=== PATIENT | female | born 1965 | race Caucasian/White ===

== ENCOUNTER 2016-11-28 08:00 | Outpatient (CLI) | payer MEDICAID, OTHER ==
[2016-11-28 18:30] LABS: BILIRUBIN,TOTAL 0.3 mg/dL (0.2-1.0); BUN - BLOOD UREA NITROGEN 14 mg/dL (6-20); CALCIUM 9.7 mg/dL (8.5-10.3); CARBON DIOXIDE - CO2 28 mmol/L (21-32); CHLORIDE 102 mmol/L (101-111); CREATININE 0.8 mg/dL (0.4-1.0); GFR - MDRD 75 (>89); GLUCOSE 98 mg/dL (70-100); POTASSIUM 3.9 mmol/L (3.5-5.0); SODIUM 139 mmol/L (135-145); TOTAL PROTEIN 7.4 g/dL (6.7-8.2)
[2016-11-28 18:32] LABS: BILIRUBIN,DIRECT < 0.1 mg/dL (0.1-0.5)
== END 2016-11-28 23:59 ==
LOC: LAB.S 08:00
PROVIDERS: ATTEND Nurse Practitioner Gerontology
DX: B18.2 Chronic viral hepatitis C (principal)
CPT/HCPCS: 36415; 80048; 80076; 87522

== ENCOUNTER 2016-12-19 08:58 | Outpatient (CLI) | payer MEDICAID ==
[2016-12-19 19:15] LABS: BILIRUBIN,DIRECT 0.1 mg/dL (0.1-0.5); BILIRUBIN,TOTAL 0.5 mg/dL (0.2-1.0); CALCIUM 9.4 mg/dL (8.5-10.3); CREATININE 0.8 mg/dL (0.4-1.0); TOTAL PROTEIN 7.2 g/dL (6.7-8.2)
== END 2016-12-19 08:59 | disposition home or self-care (01) ==
LOC: LAB.S 08:58
PROVIDERS: ATTEND Nurse Practitioner Gerontology
DX: B18.2 Chronic viral hepatitis C (principal)
CPT/HCPCS: 36415; 80048; 80076; 87522

== ENCOUNTER 2017-01-02 09:14 | Emergency (ER) | payer MEDICAID ==
[2017-01-02] MEDS ORDERED: SULFAMETH/TRIMETH DS 800/160 MG TABLET PO STA (10:49)
[2017-01-02] MEDS ORDERED: SULFAMETH/TRIMETH DS 800/160 MG TABLET PO ONE (10:52)
--- NOTE | 2017-01-02 10:56 | ED Physician Documentation ---
History of Present Illness - Stated complaint Stated Complaint: RT HAND BUMP - Chief complaint Chief Complaint: Ext Problem - History obtained from History obtained from: Patient - Additonal information Additional information: Pleasant female with history of Crohn's disease and hepatitis C Currently under treatment who presents with a complaint of a painful red bump on the right aspect of her hand just distal to the ulnar head. This area is red, raised, and her hand feels warm. Yesterday she felt a little under the weather. She denies any fever or chills. She does not have any complaints of nausea vomiting constipation or diarrhea. She does not believe she is ever had staph before. Review of systems: For pertinent positive and negative questions for the review of systems please see history of present illness. Otherwise all other systems have been reviewed and are negative. Dragon disclaimer: Parts of this medical record were created using voice recognition technology. Because of the inherent limitations of this system occasional same sounding word substitutions do occur and persist despite proofreading. Please read the document for context. 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 - Present Medications Home Medications: Ambulatory Orders Medication Instructions Recorded Confirmed HYDROcod/ACETAM 5/325 [Vicodin 1 tab 09/24/15 5/325] HYDROcod/ACETAM 5/325 [Laura 5/325] 1 - 2 ea PO Q6H PRN #14 tablet 01/02/17 Sulfamethox/Trimeth 800/160 2 each PO BID #20 tablet 01/02/17 [Bactrim Ds 800/160] - Allergies Allergies/Adverse Reactions: Allergies Allergy/AdvReac Type Severity Reaction Status Date / Time codeine AdvReac Nausea Verified 09/24/15 12:32 - Social History Does the pt smoke?: No Smoking Status: Former smoker Does the pt drink ETOH?: Yes Does the pt have substance abuse?: No - Immunizations Immunizations are current?: Yes Immunizations: TDAP >10years/unknown - POLST Patient has POLST: No PD ED PE NORMAL - Vitals Vital signs reviewed: Yes - General General: Alert and oriented X 3, No acute distress, Well developed/nourished - HEENT HEENT: Atraumatic - Cardiac Cardiac: RRR, No murmur - Respiratory Respiratory: No respiratory distress, Clear bilaterally - Abdomen Abdomen: Normal bowel sounds - Free text exam Free text exam: On examination of her Right hand there is some mild soft tissue swelling on the dorsum. Most of soft tissue swelling is over the wrist joint where she has a prabhjot-sized abscess that is raised with a central Black punctum Results - Vitals Vitals: Vital Signs - 24 hr 01/02/17 09:20 Temperature 36.6 C Heart Rate 79 Respiratory 16 Rate Blood Pressure 123/77 O2 Saturation 99 Oxygen O2 Source Room air PD MEDICAL DECISION MAKING - ED course ED course: Patient presents with painful red swelling on the dorsum of her right hand. It clearly appears to be an abscess. The patient had the area cleansed, anesthetized with 2 cc of lidocaine by me. It was incised using a #11 scalpel. Once incised pus was obtained. Wound was cultured. It was deloculated using curved hemostats. The abscess cavity was actually quite large and deeper than when he had initially thought. It was packed using approximately 6 inches of quarter inch gauze. Patient tolerated procedure well. She will be placed on double strength Bactrim. This clearly appears to be staphylococcal clinically. I am recommending packing removal in 3 days and recheck with her physician in that period of time. Disposition: To home Clinical impression: 1. Abscess right wrist status post incision and drainage with packing Departure - Departure Disposition: 01 Home, Self Care Clinical Impression: Abscess of hand Condition: Good Instructions: ED Abscess IandD, ED Skin Infec MRSA Suspect Conf, ED Packing Removal Replacement Follow-Up: Richard Salas MD [Primary Care Provider] - Prescriptions: Sulfamethox/Trimeth 800/160 [Bactrim Ds 800/160] 2 each PO BID #20 tablet HYDROcod/ACETAM 5/325 [Laura 5/325] 1 - 2 ea PO Q6H PRN #14 tablet PRN Reason: Pain
[2017-01-02 11:12] VITALS: BP 124/60
== END 2017-01-02 11:12 | disposition home or self-care (01) ==
LOC: ED 09:14
DX: L02.413 Cutaneous abscess of right upper limb (principal); B19.20 Unspecified viral hepatitis C without hepatic coma; Z87.891 Personal history of nicotine dependence
CPT/HCPCS: 10061; 87070; 87077; 87181; 87205; 99283; A9270

== ENCOUNTER 2017-01-23 08:33 | Outpatient (CLI) | payer MEDICAID ==
[2017-01-23 19:30] LABS: BILIRUBIN,TOTAL 0.6 mg/dL (0.2-1.0); BUN - BLOOD UREA NITROGEN 8 mg/dL (6-20); CALCIUM 9.9 mg/dL (8.5-10.3); CARBON DIOXIDE - CO2 27 mmol/L (21-32); CHLORIDE 104 mmol/L (101-111); CREATININE 0.8 mg/dL (0.4-1.0); GFR - MDRD 75 (>89); GLUCOSE 98 mg/dL (70-100); POTASSIUM 3.7 mmol/L (3.5-5.0); SODIUM 139 mmol/L (135-145); TOTAL PROTEIN 7.5 g/dL (6.7-8.2)
[2017-01-23 19:38] LABS: BILIRUBIN,DIRECT < 0.1 mg/dL (0.1-0.5)
== END 2017-01-23 08:34 | disposition home or self-care (01) ==
LOC: LAB.S 08:33
PROVIDERS: ATTEND Nurse Practitioner Gerontology
DX: B18.2 Chronic viral hepatitis C (principal)
CPT/HCPCS: 36415; 80048; 80076; 87522

== ENCOUNTER 2017-03-14 08:14 | Outpatient (CLI) | payer MEDICAID ==
[2017-03-14 12:15] LABS: BASOPHILS % (AUTO) 0.4 %; EOSINOPHILS # (AUTO) 0.1 10^3/uL (0.0-0.7); EOSINOPHILS % (AUTO) 1.5 %; HGB - HEMOGLOBIN 12.8 g/dL (12.0-16.0); LYMPHOCYTES # (AUTO) 2.8 10^3/uL (1.5-3.5); LYMPHOCYTES % (AUTO) 46.9 %; MEAN CORPUSCULAR HEMOGLOBIN 27.7 pg (27.0-31.0); MEAN CORPUSCULAR HGB CONC 32.7 g/dL (32.0-36.0); MEAN CORPUSCULAR VOLUME 84.7 fL (81.0-99.0); MEAN PLATELET VOLUME 9.5 fL (7.9-10.8); MONOCYTES # (AUTO) 0.4 10^3/uL (0.0-1.0); MONOCYTES % (AUTO) 6.9 %; NEUTROPHILS # (AUTO) 2.7 10^3/uL (1.5-6.6); NEUTROPHILS % (AUTO) 44.3 %; NUCLEATED RED BLOOD CELLS AUTO 0.1 /100WBC; RED BLOOD COUNT 4.61 10^6/uL (4.20-5.40); RED CELL DISTRIBUTION WIDTH 13.2 % (12.0-15.0); UNCORRECTED WHITE BLOOD COUNT 6.1 x10^3/uL; WHITE BLOOD COUNT 6.1 x10^3/uL (4.8-10.8)
[2017-03-14 12:22] LABS: ALBUMIN/GLOBULIN RATIO 1.3 (1.0-2.2); BILIRUBIN,TOTAL 0.8 mg/dL (0.2-1.0); BUN - BLOOD UREA NITROGEN 14 mg/dL (6-20); CALCIUM 9.1 mg/dL (8.5-10.3); CARBON DIOXIDE - CO2 27 mmol/L (21-32); CHLORIDE 104 mmol/L (101-111); CHOL/HDL RATIO 3.1 (<4.4); CHOLESTEROL 202 mg/dL; CREATININE 0.8 mg/dL (0.4-1.0); GFR - MDRD 75 (>89); GLUCOSE 97 mg/dL (70-100); HDL CHOLESTEROL 66 mg/dL; LDL/HDL RATIO 1.9 (<4.4); SODIUM 138 mmol/L (135-145); TOTAL PROTEIN 7.1 g/dL (6.7-8.2); TRIGLYCERIDES 60 mg/dL; VLDL CHOLESTEROL 12 mg/dL
[2017-03-16 21:52] LABS: TEST RESULT REPORT (())
== END 2017-03-14 08:15 | disposition home or self-care (01) ==
LOC: LAB.F 08:14
PROVIDERS: ATTEND Nurse Practitioner Family
DX: K50.90 Crohn's disease, unspecified, without complications (principal); Z13.220 Encounter for screening for lipoid disorders; E03.9 Hypothyroidism, unspecified; B19.20 Unspecified viral hepatitis C without hepatic coma
CPT/HCPCS: 36415; 80053; 80061; 81599; 84443; 85025; 87522

== ENCOUNTER 2017-04-25 17:23 | Emergency (ER) | payer MEDICAID ==
[2017-04-25 17:31] VITALS: BP 149/87
[2017-04-25] MEDS ORDERED: KETOROLAC 60 MG/2 ML VIAL IM STA (18:08)
--- NOTE | 2017-04-25 18:09 | ED Physician Documentation ---
PD HPI UPPER EXT INJURY - Stated complaint Stated Complaint: LEFT ARM PX - Chief complaint Chief Complaint: Ext Problem - History obtained from History obtained from: Patient - History of Present Illness Location: Left, Forearm, Wrist Where injury occurred: Work Timing - onset: Today Timing - duration: Days (1) Timing - details: Gradual onset Pain level max: 7 Pain level now: 7 Improved by: Rest, Ice, Immobilization Worsened by: Moving, Palpating Associated symptoms: No: Weakness, Numbness, Tingling, Swelling Similar symptoms before: Diagnosis (has a chronic poorly healed L forearm fracture. 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 - Present Medications Home Medications: Ambulatory Orders Medication Instructions Recorded Confirmed Cyclobenzaprine [Flexeril] 10 mg PO TID PRN #20 tablet 04/25/17 Hydrocodone/Acetaminophen 1 - 2 each PO Q6H PRN #3 tablet 04/25/17 [Hydrocodon-Acetaminophen 5-325] Meloxicam [Mobic] 15 mg PO DAILY PRN #20 tablet 04/25/17 - Allergies Allergies/Adverse Reactions: Allergies Allergy/AdvReac Type Severity Reaction Status Date / Time codeine AdvReac Nausea Verified 04/25/17 17:31 - Social History Does the pt smoke?: No Smoking Status: Never smoker Does the pt drink ETOH?: Yes Does the pt have substance abuse?: No - Immunizations Immunizations are current?: Yes Immunizations: TDAP >10years/unknown - POLST Patient has POLST: No PD ED PE NORMAL - Vitals Vital signs reviewed: Yes - General General: Alert and oriented X 3, No acute distress - Derm Derm: Warm and dry - Extremities Extremities: Other (Deformity present on the proximal aspect of the ulna, chronic. No overlying skin changes. Patient has pain with active range of motion of the forearm and wrist. No bony tenderness to palpation. Neurovascularly intact) - Neuro Neuro: Alert and oriented X 3 - Psych Psych: Normal mood, Normal affect Results - Vitals Vitals: Vital Signs - 24 hr 04/25/17 17:26 Temperature 36.5 C Heart Rate 83 Respiratory 14 Rate Blood Pressure 149/87 H O2 Saturation 98 Oxygen O2 Source Room air PD MEDICAL DECISION MAKING - ED course Complexity details: considered differential, d/w patient ED course: Patient is a 51-year-old female who presents to the emergency department with what appears to be muscular strain. No evidence of acute fracture. She states that she has not reinjured the arm other than lifting, states that the arm normally hurts after lifting. States she is out of all of her pain medication. Informed her that she needs to follow-up with her doctor for further pain medications after today. We will give her a small amount of pain medication, but will treat with muscle relaxants and NSAIDs primarily. Placed in a Velcro wrist splint for comfort. Patient counseled regarding signs and symptoms for which I believe and urgent re-evaluation would be necessary. Patient with good understanding of and agreement to plan and is comfortable going home at this time This document was made in part using voice recognition software. While efforts are made to proofread this document, sound alike and grammatical errors may occur. Departure - Departure Disposition: 01 Home, Self Care Clinical Impression: Wrist strain Qualifiers: Encounter type: initial encounter Laterality: left Qualified Code(s): S66.912A - Strain of unspecified muscle, fascia and tendon at wrist and hand level, left hand, initial encounter Strain of forearm, left Qualifiers: Encounter type: initial encounter Qualified Code(s): S56.912A - Strain of unspecified muscles, fascia and tendons at forearm level, left arm, initial encounter Condition: Good Instructions: ED Strain Muscle Ext Follow-Up: Kimmy Mcintosh ARNP [Primary Care Provider] - Within 1 week Prescriptions: Cyclobenzaprine [Flexeril] 10 mg PO TID PRN #20 tablet PRN Reason: Spasms Hydrocodone/Acetaminophen [Hydrocodon-Acetaminophen 5-325] 1 - 2 each PO Q6H PRN #3 tablet PRN Reason: pain Meloxicam [Mobic] 15 mg PO DAILY PRN #20 tablet PRN Reason: pain Comments: Return if you worsen. Use the splint as needed for comfort. you can also use the sling as needed for comfort. Follow-up with your doctor for further evaluation and care. Do not drink alcohol or drive while on narcotic pain medicine. Note that many narcotic pain relievers also contain tylenol/acetaminophen. Please ensure that your total dose of acetaminophen from all sources does not exceed 3 grams (3000mg) per day. You may constipated on this medication, take a stool softener such as "Colace" twice a day while you are on it. Also recommend a kezt-ode-vtsweyl laxative such as senna or MiraLAX any day that you do not have a bowel movement. If you received narcotic pain medication in the emergency department, do not drive or operate machinery for the next 24 hours. Discharge Date/Time: 04/25/17 18:42
[2017-04-25] MEDS ORDERED: KETOROLAC 30 MG/ML VIAL ONE ×2 (18:18→18:24)
== END 2017-04-25 18:42 | disposition home or self-care (01) ==
LOC: ED 17:23
DX: S56.912A Strain of unspecified muscles, fascia and tendons at forearm level, left arm, initial encounter (principal); X58.XXXA Exposure to other specified factors, initial encounter
CPT/HCPCS: 96372; 99283

== ENCOUNTER 2017-05-29 12:00 | Outpatient (CLI) | payer MEDICAID | END 2017-05-29 12:01 | disposition home or self-care (01) | LOC: LAB.F 12:00 | DX: Z02.1 Encounter for pre-employment examination (principal) ==

== ENCOUNTER 2017-07-17 16:38 | Outpatient (CLI) | payer MEDICAID ==
[2017-07-17 18:17] LABS: ALBUMIN 4.3 g/dL (3.2-5.5); BILIRUBIN,DIRECT 0.1 mg/dL (0.1-0.5); BILIRUBIN,TOTAL 0.6 mg/dL (0.2-1.0); CALCIUM 9.6 mg/dL (8.5-10.3); CREATININE 0.9 mg/dL (0.4-1.0); TOTAL PROTEIN 7.4 g/dL (6.7-8.2)
[2017-07-21 23:27] LABS: HCV RNA QNT <1.18 NOT DETECTED Log IU/mL (<1.18); HCV RNA QUANT RT PCR <15 NOT DETECTED IU/mL (<15)
== END 2017-07-17 16:39 | disposition home or self-care (01) ==
LOC: LAB.S 16:38
PROVIDERS: ATTEND Nurse Practitioner Gerontology
DX: B18.2 Chronic viral hepatitis C (principal)
CPT/HCPCS: 36415; 80048; 80076; 87522

== ENCOUNTER 2017-12-31 14:43 | Outpatient (CLI) | payer MEDICAID | END 2017-12-31 14:44 | disposition critical access hospital (66) | LOC: EMS 14:43 | PROVIDERS: ATTEND Surgery | DX: R10.9 Unspecified abdominal pain (principal); M54.5 Low back pain; R11.2 Nausea with vomiting, unspecified | CPT/HCPCS: A0425; A0427; A0999 ==

== ENCOUNTER 2017-12-31 15:28 | Emergency (ER) | payer MEDICAID ==
--- NOTE | 2017-12-31 16:08 | ED Physician Documentation ---
PD HPI ABD PAIN - Stated complaint Stated Complaint: ABD PAIN - History obtained from History obtained from: Patient - History of Present Illness Timing - onset: Today, Yesterday Timing - duration: Days (1-2) Timing - details: Gradual onset, Still present Quality: Cramping, Aching, Pain Location: All over / everywhere, Periumbilical Radiation: No: Chest, Left flank, Right flank Improved by: No: Vomiting Worsened by: Eating Associated symptoms: Nausea, Vomiting, Diarrhea (chronic due to crohns). No: Fever Similar symptoms before: Diagnosis (states history of crohns and has similar symptoms with flare ups.) Recently seen: Not recently seen Review of Systems Constitutional: reports: Myalgias. denies: Fever, Chills Nose: denies: Rhinorrhea / runny nose, Congestion Throat: denies: Sore throat Cardiac: denies: Chest pain / pressure, Palpitations Respiratory: denies: Dyspnea, Cough GI: reports: Abdominal Pain, Nausea, Vomiting, Diarrhea. denies: Constipation, Hematemesis, Bloody / black stool : denies: Dysuria, Frequency Skin: denies: Rash, Lesions Neurologic: reports: Generalized weakness. 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 - Present Medications Home Medications: Ambulatory Orders Medication Instructions Recorded Confirmed Dexamethasone [Decadron] 4 mg PO DAILY #8 tablet 12/31/17 Dicyclomine [Bentyl] 10 mg PO QID PRN #20 capsule 12/31/17 HYDROcod/ACETAM 5/325 [[place] 5/325] 1 tab PO Q6H PRN #15 tablet 12/31/17 Ondansetron Odt [Zofran] 4 mg TL Q6H PRN #15 tablet 12/31/17 - Allergies Allergies/Adverse Reactions: Allergies Allergy/AdvReac Type Severity Reaction Status Date / Time codeine AdvReac Nausea Verified 12/31/17 16:51 - Social History Does the pt smoke?: No Smoking Status: Never smoker Does the pt drink ETOH?: Yes Does the pt have substance abuse?: No - Immunizations Immunizations are current?: Yes Immunizations: TDAP >10years/unknown - POLST Patient has POLST: No PD ED PE NORMAL - Vitals Vital signs reviewed: Yes - General General: Alert and oriented X 3, Well developed/nourished, Other (appears in pain due to general abd pain, gestures to mid abd when asked where it hurts. ) - HEENT HEENT: PERRL, Pharynx benign - Neck Neck: Supple, no meningeal sign, No adenopathy - Cardiac Cardiac: RRR, No murmur - Respiratory Respiratory: Clear bilaterally - Abdomen Abdomen: Soft, Non distended, No organomegaly, Other (tender generally but mostly mid abd. ). No: Normal bowel sounds (hyperactive) Results - Vitals Vitals: Oxygen O2 Source Room air - Labs Labs: Laboratory Tests 12/31/17 12/31/17 12/31/17 16:16 16:16 16:16 WBC 12.1 H RBC 4.93 Hgb 13.5 Hct 41.8 MCV 84.8 MCH 27.4 MCHC 32.2 RDW 13.6 Plt Count 191 MPV 9.2 Neut # (Auto) 10.7 H Lymph # (Auto) 0.9 L [place] # (Auto) 0.4 Eos # (Auto) 0.0 Baso # (Auto) 0.0 Absolute Nucleated RBC 0.00 Nucleated RBC % 0.0 ESR 4 Sodium 140 Potassium 4.0 Chloride 105 Carbon Dioxide 26 Anion Gap 9.0 BUN 14 Creatinine 0.8 Estimated GFR (MDRD) 75 L Glucose 135 H Calcium 9.8 Total Bilirubin 1.1 H AST 39 ALT 29 Alkaline Phosphatase 54 Total Protein 8.6 H Albumin 4.9 Globulin 3.7 Albumin/Globulin Ratio 1.3 Lipase 27 PD MEDICAL DECISION MAKING - ED course Complexity details: reviewed results (WBC slightly up. ESR is normal. ), re- evaluated patient (feels better with fluids and meds. ), considered differential , d/w patient - Sepsis Event Vital Signs: Oxygen O2 Source Room air Departure - Departure Disposition: 01 Home, Self Care Clinical Impression: Abdominal pain Acute Crohn's disease Qualifiers: Digestive disease complication type: without complication Qualified Code(s): K50.90 - Crohn's disease, unspecified, without complications Condition: Stable Record reviewed to determine appropriate education?: Yes Instructions: ED Abdominal Pain Unkn Cause, ED Inflam Bowel Disease Crohn Follow-Up: Kimmy Mcintosh ARNP [Primary Care Provider] - Prescriptions: Dexamethasone [Decadron] 4 mg PO DAILY #8 tablet Dicyclomine [Bentyl] 10 mg PO QID PRN #20 capsule PRN Reason: Spasms HYDROcod/ACETAM 5/325 [[place] 5/325] 1 tab PO Q6H PRN #15 tablet PRN Reason: Pain Ondansetron Odt [Zofran] 4 mg TL Q6H PRN #15 tablet PRN Reason: Nausea / Vomiting Comments: Drink lots of fluids. Food as tolerated. Decadron daily for the next week the inflammation of the Crohn's flareup. Your white count and sed rate are good so presumably not significant flareup and I would anticipate improvement in the short-term. Use dicyclomine if needed for cramps and pain. Hydrocodone if needed for worse pain. Ondansetron if needed for nausea. Follow-up with your primary care in the next several days if not improving well. Discharge Date/Time: 12/31/17 18:15
[2017-12-31 16:22] LABS: BASOPHILS % (AUTO) 0.3 %; HGB - HEMOGLOBIN 13.5 g/dL (12.0-16.0); LYMPHOCYTES # (AUTO) 0.9 10^3/uL (1.5-3.5); LYMPHOCYTES % (AUTO) 7.8 %; MEAN CORPUSCULAR HEMOGLOBIN 27.4 pg (27.0-31.0); MEAN CORPUSCULAR HGB CONC 32.2 g/dL (32.0-36.0); MEAN CORPUSCULAR VOLUME 84.8 fL (81.0-99.0); MEAN PLATELET VOLUME 9.2 fL (7.9-10.8); MONOCYTES # (AUTO) 0.4 10^3/uL (0.0-1.0); MONOCYTES % (AUTO) 3.4 %; NEUTROPHILS # (AUTO) 10.7 10^3/uL (1.5-6.6); NEUTROPHILS % (AUTO) 88.5 %; PLT - PLATELET COUNT 191 10^3/uL (130-450); RED BLOOD COUNT 4.93 10^6/uL (4.20-5.40); RED CELL DISTRIBUTION WIDTH 13.6 % (12.0-15.0); WHITE BLOOD COUNT 12.1 x10^3/uL (4.8-10.8)
[2017-12-31 16:33] LABS: ALBUMIN 4.9 g/dL (3.2-5.5); ALBUMIN/GLOBULIN RATIO 1.3 (1.0-2.2); BILIRUBIN,TOTAL 1.1 mg/dL (0.2-1.0); CALCIUM 9.8 mg/dL (8.5-10.3); CREATININE 0.8 mg/dL (0.4-1.0); TOTAL PROTEIN 8.6 g/dL (6.7-8.2)
[2017-12-31] MEDS ORDERED: HYDROmorphone 1 MG/ML CARPUJECT IVP STA (16:36)
[2017-12-31] MEDS ORDERED: KETOROLAC 15 MG/ML VIAL IVP STA (16:36)
[2017-12-31] MEDS ORDERED: DEXAMETHASONE 10 MG/ML VIAL IVP STA (16:36)
[2017-12-31] MEDS ORDERED: ONDANSETRON 4 MG/2 ML VIAL IVP STA (16:36)
[2017-12-31] MEDS ORDERED: SODIUM CHLORIDE 0.9% 1,000 ML IV ONE (16:36)
[2017-12-31 18:15] VITALS: BP 118/72
== END 2017-12-31 18:15 | disposition home or self-care (01) ==
LOC: EDUNIT# → SUPCPDRO 15:28 → ED 15:28
DX: R10.9 Unspecified abdominal pain (principal); K50.90 Crohn's disease, unspecified, without complications
CPT/HCPCS: 36415; 80053; 83690; 85025; 85651; 96361; 96374; 96375; 99283; J1170

== ENCOUNTER 2018-06-24 12:16 | Emergency (ER) | payer MEDICAID ==
[2018-06-24 12:28] VITALS: BP 141/90
[2018-06-24] MEDS ORDERED: IBUPROFEN 800 MG TABLET PO STA (12:33)
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
--- NOTE | 2018-06-24 13:17 | XRAY Report ---
Reason: middle finger inj Procedure Date: 06/24/2018 Accession Number: [id number] / [id number] Procedure: XR - Finger(s) RT CPT Code: FULL RESULT: EXAM: RIGHT LONG DIGIT RADIOGRAPHY EXAM DATE: 06/24/2018 12:56 PM. CLINICAL HISTORY: Middle finger inj. COMPARISON: None. TECHNIQUE: 3 views. FINDINGS: Bones: Normal. No fracture or bone lesion. Joints: Normal. No subluxations. Soft Tissues: No radiopaque foreign bodies. Soft tissue swelling is likely present. IMPRESSION: 1. Soft tissue swelling is likely present. 2. The bones appear intact. RADIA
== END 2018-06-24 13:13 | disposition home or self-care (01) ==
LOC: ED 12:16
DX: S63.612A Unspecified sprain of right middle finger, initial encounter (principal); X50.1XXA Overexertion from prolonged static or awkward postures, initial encounter; R03.0 Elevated blood-pressure reading, without diagnosis of hypertension
CPT/HCPCS: 29130; 73140; 99282; 99283; A9270

== ENCOUNTER 2018-07-17 09:11 | Day surgery (SDC) | payer MEDICAID ==
[~2018-07-17 09:11] MED LIST: ceFAZolin 2 GM/50 ML 2 GM/50 ML BAG IV ONE
[2018-07-17] MEDS ORDERED: LACTATED RINGERS 1,000 ML IV ONE ×2 (09:16→11:56)
--- NOTE | 2018-07-17 09:20 | ANESTHESIA ---
Pre-Anesthesia VS, & Labs - Diagnosis left ulnar nonunion - Procedure left open reduction internal fixation ulnar fracture Height 5 ft 2 in Body Mass Index 23.8 - NPO >8 hours - Is Patient ?: No Home Medications and Allergies Home Medications: Ambulatory Orders No Known Home Medications 07/16/18 No Known Home Medications 07/16/18 Allergies/Adverse Reactions: Allergies Allergy/AdvReac Type Severity Reaction Status Date / Time codeine AdvReac Nausea Verified 06/24/18 12:28 Anes History & Medical History - Anesthetic History Anesthesia Complications: reports: No previous complications - Medical History Cardiovascular: reports: None Pulmonary: reports: None Gastrointestinal: reports: Hepatitis, Crohn's disease Urinary: reports: None Neuro: reports: None Musculoskeletal: reports: Other Endocrine/Autoimmune: reports: HyPOthyroidism Skin: reports: None Smoking Status: Never smoker - Surgical History General: Bowel surgery Gynecologic: section Exam General: Alert Dental: Partials Upper Mouth Opening: Greater than 4 Fingerbreadths Mallampati classification: II Thyromental Distance: 4-6 cm Respiratory: Lungs clear Cardiovascular: Regular rate, Normal S1, Normal S2 Mental/Cognitive Status: Alert/Oriented X3 Plan Anesthesia Type: Supraclavicular Block Consent for Procedure(s) Verified and Reviewed: Yes Code Status: Attempt Resuscitation ASA classification: 2-Mild systemic disease Is this case an emergency?: No
[2018-07-17 09:37] LABS: HCG UR QUAL NEGATIVE
[2018-07-17] MEDS ORDERED: BUPIVACAINE 0.25%-EPI 1:200000 PF 30 ML VIAL ONE (09:38)
--- NOTE | 2018-07-17 10:52 | ANESTHESIA PROCEDURE NOTE ---
Diagnosis: ulnar nonunion, for ORif ulnar Procedure: supraclavicular block, left Consent for Procedure(s) Verified and Reviewed: Yes Height and Weight: Height 5 ft 2 in Weight (kg) 59.9 kg Body Mass Index 23.8 Vital Signs: Temp Pulse Resp BP Pulse Ox 36.2 C L 64 16 136/94 H 100 07/17/18 09:20 07/17/18 09:20 07/17/18 09:20 07/17/18 09:20 07/17/18 09:20 Allergies codeine Adverse Reaction (Verified 06/24/18 12:28) Nausea Requesting Provider: Dr. Orellana ASA classification: 2-Mild systemic disease Anes. Monitoring and Equipment: Non-invasive BP, Pulse oximetery Anes. Procedure Start Time: 10:01 Anes. Procedure Stop Time: 10:16 Procedure Notes: Block for post op pain and/or primary anesthestic if sets up well. Time out done with RN, patent consented. Cloraprep to left clavicular area, sterile technique. Ultrasound view of plexus in supraclavicular region good. Needle #22 stimuplex under ultrasound guidance. 0.5% Ropivicaine 35cc with Decadron 4mg injected in 2-5 cc increments, no heme or parathesia. Good spread, see image in chart. Patient was sedated with Versed 2mg and Fentanyl 100mcg prior to procedure, full monitors on and 2l NC, tolerated well.
[2018-07-17] MEDS ORDERED: BUPIVACAINE 0.25%-EPI 1:200000 PF 10 ML VIAL SUBQ ONE (11:50)
[2018-07-17] MEDS ORDERED: ONDANSETRON 4 MG/2 ML VIAL IVP PRN (12:13)
[2018-07-17] MEDS ORDERED: oxyCODONE 5 MG TABLET PO PRN (12:13)
[2018-07-17 14:12] VITALS: BP 124/74
--- NOTE | 2018-07-18 09:19 | OPERATIVE REPORT ---
DATE OF SERVICE: 07/17/2018 Physician: Kobi Orellana MD PREOPERATIVE DIAGNOSIS: Left ulnar shaft nonunion fracture. POSTOPERATIVE DIAGNOSIS: Left ulnar shaft nonunion fracture. PROCEDURE PERFORMED: Open reduction and internal fixation of left ulnar shaft. OPERATING SURGEON: Kobi Orellana MD ANESTHESIA: Interscalene block and MAC by Lissett García CRNA. INDICATIONS FOR SURGERY: Patient is a 52-year-old female with a longstanding left ulnar shaft fractu re, which has proceeded to nonunion of the fracture after a long period of time, and this is a hypert rophic nonunion that causes aching in the forearm. The recommendation has been made for operative tr eatment and stabilization of the fracture. FINDINGS AT SURGERY: Patient was found to have a very hypertrophic nonunion of the bone with a carti wilmer interval in the gap and diffuse circumferential hypertrophy of bone on proximal and distal aspec ts. DESCRIPTION OF OPERATIVE PROCEDURE: Patient was taken to the operating room, was given an interscale ne block followed by MAC sedation, was very comfortable. In the supine position, a tourniquet was pl aced on her arm, and her forearm and hand were sterilely prepped and draped in a standard fashion. A surgical timeout was held. Patient's left forearm was approached through a longitudinal 6-inch inci gael centered on the area of nonunion, and dissection made directly down to the subcutaneous border o f the bone, and the periosteum incised along that border, and the tissues reflected on the ulnar and radial aspects of the bone. The nonunion site was curetted of fibrous tissue and cartilage to mobili ze into correction, and some of the hypertrophic bone was removed with an osteotome and rongeur. An appropriate site was determined for plate placement, and the size of the plate determined and the jos te contoured to accommodate some of the hypertrophied enlargement of the bone in that area, and appli ed to the ulna shaft and placed with provisional screw fixation at first to accommodate increasing co mpression through the plate. All the compression screws and standard screws were inserted, with very good fixation and stable bone. The final screws inserted were locking screws at the proximal and di stal aspect of the plate. The mini C-arm was used to image the arm with acceptable alignment achieve d and acceptable plate fixation. The wound was irrigated thoroughly, tourniquet deflated, cautery us ed to control bleeding and closure made, repairing the rent in the tissues, the fascia, followed by s ubcutaneous closure with 2-0 Vicryl and skin with Monocryl. Sterile dressings were applied. The pat ient was placed in a bulky, soft splint dressing and taken to the recovery room in stable condition. ESTIMATED BLOOD LOSS: Minimal, about 20 mL COMPLICATIONS: None. COUNTS: Sponge and needle counts correct. TD: 07/18/2018 07:55
== END 2018-07-17 09:12 | disposition home or self-care (01) ==
LOC: SDS 09:11
PROVIDERS: ATTEND Orthopaedic Surgery
PROC: 0PSJ04Z Reposition Left Radius with Internal Fixation Device, Open Approach (ICD-10-PCS; principal; 2018-07-17 10:15)
DX: S52.235 Nondisplaced oblique fracture of shaft of left ulna (principal); G43.909 Migraine, unspecified, not intractable, without status migrainosus; E03.9 Hypothyroidism, unspecified; H54.7 Unspecified visual loss; Z87.891 Personal history of nicotine dependence; Z86.19 Personal history of other infectious and parasitic diseases
CPT/HCPCS: 25400; 81025; C1713; J0690; J7120

== ENCOUNTER 2019-02-16 20:21 | Outpatient (CLI) | payer MEDICAID | END 2019-02-16 20:22 | disposition critical access hospital (66) | LOC: EMS 20:21 | PROVIDERS: ATTEND Surgery | DX: R11.2 Nausea with vomiting, unspecified (principal) | CPT/HCPCS: A0425; A0429 ==

== ENCOUNTER 2021-10-10 09:57 | Outpatient (CLI) | payer MEDICAID | END 2021-10-10 09:58 | disposition critical access hospital (66) | LOC: EMS 09:57 | DX: R46.89 Other symptoms and signs involving appearance and behavior (principal); R10.9 Unspecified abdominal pain; R11.0 Nausea | CPT/HCPCS: A0425; A0427; A0999 ==

== ENCOUNTER 2021-10-10 10:28 | Emergency (ER) | payer MEDICAID ==
--- NOTE | 2021-10-10 10:43 | ED Physician Documentation ---
PD HPI ABD PAIN - Stated complaint Stated Complaint: ABD PX/COMBATIVE - Chief complaint Chief Complaint: Abd Pain - History obtained from History obtained from: Patient, EMS - History of Present Illness Timing - onset: How many days ago (few) Timing - details: Gradual onset, Still present (worsening) Quality: Cramping, Aching, Pain Location: All over / everywhere Radiation: Lower back. No: Chest, Left flank, Right flank Improved by: No: Laying still, Vomiting, Position Worsened by: Palpation. No: Position Associated symptoms: Nausea, Vomiting, Loss of appetite. No: Fever, Constipation, Dysuria Similar symptoms before: Diagnosis (crohns disease with intermittent flares. She states no daily regular meds for it.) Review of Systems Constitutional: denies: Fever, Chills, Myalgias Nose: denies: Rhinorrhea / runny nose, Congestion Throat: denies: Sore throat Cardiac: denies: Chest pain / pressure Respiratory: denies: Cough GI: reports: Abdominal Pain, Nausea, Vomiting. denies: Constipation, Diarrhea : denies: Dysuria, Frequency Musculoskeletal: reports: Back pain. 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 - Present Medications Home Medications: Ambulatory Orders Medication Instructions Recorded Confirmed Docusate Sodium 100Mg Capsule 100 mg PO DAILY #10 cap 10/10/21 [Colace 100Mg Capsule] HYDROcod/ACETAM 5/325 [[place] 5/325] 1 ea PO Q6H PRN #18 tablet 10/10/21 Ondansetron Odt [Zofran] 4 mg TL Q6H PRN #20 tablet 10/10/21 dexAMETHasone [Decadron] 4 mg PO DAILY #7 tablet 10/10/21 - Allergies Allergies/Adverse Reactions: Allergies Allergy/AdvReac Type Severity Reaction Status Date / Time codeine AdvReac Nausea Verified 06/24/18 12:28 - Social History Does the pt smoke?: No Smoking Status: Never smoker Does the pt drink ETOH?: Yes Does the pt have substance abuse?: No - Immunizations Immunizations are current?: Yes Immunizations: TDAP >10years/unknown - POLST Patient has POLST: No PD ED PE NORMAL - Vitals Vital signs reviewed: Yes - General General: Alert and oriented X 3, Well developed/nourished, Other (significant distress with drying out in pain, and rolling back and forth on cart. ) - HEENT HEENT: Pharynx benign - Neck Neck: Supple, no meningeal sign, No adenopathy - Cardiac Cardiac: RRR, No murmur - Respiratory Respiratory: Clear bilaterally - Abdomen Abdomen: Soft, No organomegaly, Other (generally tender, more to lower abd, with some mild distension. Positive percussion tenderness. ). No: Normal bowel sounds (increased) - Back Back: No CVA TTP - Derm Derm: Normal color, Warm and dry - Extremities Extremities: No tenderness to palpate, Normal ROM s pain, No edema, No calf tenderness / cord - Neuro Neuro: Alert and oriented X 3, No motor deficit, Normal speech Eye Opening: Spontaneous Motor: Obeys Commands Verbal: Oriented GCS Score: 15 Results - Vitals Vitals: Vital Signs - 24 hr 10/10/21 10/10/21 10/10/21 10:34 11:32 12:58 Temperature 36.7 C Heart Rate 76 77 Respiratory 20 16 Rate Blood Pressure 150/100 H 145/70 H O2 Saturation 100 99 98 Oxygen O2 Source Room air Oxygen Flow Rate 2 - Labs Labs: Laboratory Tests 10/10/21 10/10/21 10/10/21 11:03 11:03 11:03 WBC 15.6 H RBC 4.71 Hgb 13.2 Hct 39.4 MCV 83.7 MCH 28.0 MCHC 33.5 RDW 14.0 Plt Count 225 MPV 11.0 H Neut # (Auto) 13.3 H Lymph # (Auto) 1.7 [place] # (Auto) 0.5 Eos # (Auto) 0.0 Baso # (Auto) 0.1 Absolute Nucleated RBC 0.00 Nucleated RBC % 0.0 ESR 18 Sodium 139 Potassium 3.4 L Chloride 102 Carbon Dioxide 24 Anion Gap 13.0 BUN 17 Creatinine 0.7 Estimated GFR (MDRD) 86 L Glucose 201 H Calcium 9.7 Magnesium 1.8 Total Bilirubin 0.7 AST 40 ALT 29 Alkaline Phosphatase 53 Total Protein 8.2 Albumin 4.5 Globulin 3.7 Albumin/Globulin Ratio 1.2 Lipase 38 Ethyl Alcohol < 5.0 PD MEDICAL DECISION MAKING - ED course Complexity details: re-evaluated patient (she is feeling greatly improved with mild amount of IV meds. Recheck abd much less tender. She would like to go home. SHared decision to forego CT since so much improved. ), considered differential (presume Crohns flareup. Can give meds for pain and nausea. consider CT scan to ensure no abscess/perforation/SBO, given the degree of pain/tenderness she has. ), d/w patient Departure - Departure Disposition: Home, Self Care Clinical Impression: Abdominal pain Qualifiers: Abdominal location: generalized Qualified Code(s): R10.84 - Generalized abdominal pain Nausea and vomiting Qualifiers: Vomiting type: unspecified Qualified Code(s): R11.2 - Nausea with vomiting, unspecified Exacerbation of Crohn's disease Qualifiers: Digestive disease complication type: without complication Qualified Code(s): K50.90 - Crohn's disease, unspecified, without complications Condition: Stable Record reviewed to determine appropriate education?: Yes Instructions: ED Inflam Bowel Disease Crohn Prescriptions: Docusate Sodium 100Mg Capsule [Colace 100Mg Capsule] 100 mg PO DAILY #10 cap dexAMETHasone [Decadron] 4 mg PO DAILY #7 tablet HYDROcod/ACETAM 5/325 [[place] 5/325] 1 ea PO Q6H PRN #18 tablet PRN Reason: Pain Ondansetron Odt [Zofran] 4 mg TL Q6H PRN #20 tablet PRN Reason: Nausea / Vomiting Comments: We will presume you are having a flareup of your Crohn's disease with the pain nausea and vomiting. As such we would treat this with a steroid type anti- inflammatory for several days along with nausea medicine a mild stool softener and then pain medicine if needed. For pain use Tylenol every 4-6 hours for basic pain or hydrocodone/acetaminophen if needed for worse pain. It transmitted your prescriptions to [facility] in [place]. I am prescribing a short course of narcotic pain medication for you. These are potentially dangerous and addictive medications that should be used carefully. These medications may constipate you. Take an krhi-hae-jhqtwaj stool softener such as docusate twice daily with plenty of water while taking these medications. If you go 24 hours without a bowel movement, take [id number] MiraLAX, per package instructions. Do not drink or drive while taking these medications. If you received narcotic or sedating medications while in the emergency department do not drive for 24 hours. Store this medication in a safe, secure place and out of reach of children. It is a violation of federal law to give or sell this medication to another person or to use in a manner other than prescribed. The ED will not refill narcotic prescriptions, including prescriptions lost or stolen. You can dispose of unwanted medications at the [facility]'s office or at several pharmacies such as [facility]. Discharge Date/Time: 10/10/21 13:04
[2021-10-10] MEDS ORDERED: HYDROmorphone 1 MG/ML CARPUJECT IVP STA (10:51)
[2021-10-10] MEDS ORDERED: SODIUM CHLORIDE 0.9% 1,000 ML IV STA (10:51)
[2021-10-10] MEDS ORDERED: KETOROLAC 30 MG/ML VIAL IVP STA (10:51)
[2021-10-10] MEDS ORDERED: DROPERIDOL 5 MG/2 ML VIAL IVP STA (10:51)
[2021-10-10 11:09] LABS: BASOPHILS # (AUTO) 0.1 10^3/uL (0.0-0.1); BASOPHILS % (AUTO) 0.3 %; EOSINOPHILS % (AUTO) 0.1 %; HCT - HEMATOCRIT 39.4 % (37.0-47.0); HGB - HEMOGLOBIN 13.2 g/dL (12.0-16.0); LYMPHOCYTES # (AUTO) 1.7 10^3/uL (1.5-3.5); LYMPHOCYTES % (AUTO) 10.6 %; MEAN CORPUSCULAR HGB CONC 33.5 g/dL (32.0-36.0); MEAN CORPUSCULAR VOLUME 83.7 fL (81.0-99.0); MONOCYTES # (AUTO) 0.5 10^3/uL (0.0-1.0); NEUTROPHILS # (AUTO) 13.3 10^3/uL (1.5-6.6); NEUTROPHILS % (AUTO) 85.6 %; PLT - PLATELET COUNT 225 10^3/uL (130-450); RED BLOOD COUNT 4.71 10^6/uL (4.20-5.40); WHITE BLOOD COUNT 15.6 x10^3/uL (4.8-10.8)
[2021-10-10 11:29] LABS: ALBUMIN 4.5 g/dL (3.2-5.5); ALBUMIN/GLOBULIN RATIO 1.2 (1.0-2.2); ALKALINE PHOSPHATASE 53 IU/L (42-121); ALT ALANINE AMINOTRANSFERASE 29 IU/L (10-60); AST ASPARTATE AMINOTRANSFERASE 40 IU/L (10-42); BILIRUBIN,TOTAL 0.7 mg/dL (0.2-1.0); BUN - BLOOD UREA NITROGEN 17 mg/dL (6-20); CALCIUM 9.7 mg/dL (8.5-10.3); CARBON DIOXIDE - CO2 24 mmol/L (21-32); CHLORIDE 102 mmol/L (101-111); CREATININE 0.7 mg/dL (0.4-1.0); ETOH - ETHANOL < 5.0 mg/dL; GFR - MDRD 86 (>89); GLUCOSE 201 mg/dL (70-100); LIPASE 38 U/L (22-51); MAGNESIUM 1.8 mg/dL (1.7-2.8); POTASSIUM 3.4 mmol/L (3.5-5.0); SODIUM 139 mmol/L (135-145); TOTAL PROTEIN 8.2 g/dL (6.7-8.2)
[2021-10-10] MEDS ORDERED: IOVERSOL 320 100 ML VIAL IVP ONE (12:11)
[2021-10-10] MEDS ORDERED: DEXAMETHASONE 10 MG/ML VIAL IVP STA (12:49)
[2021-10-10 12:58] VITALS: BP 145/70
== END 2021-10-10 13:04 | disposition home or self-care (01) ==
LOC: EDUNIT# → ED 10:28
DX: K50.90 Crohn's disease, unspecified, without complications (principal)
CPT/HCPCS: 36415; 80053; 80320; 83690; 83735; 85025; 85651; 96374; 96375; 99284; 99285; J1170

== ENCOUNTER 2021-11-11 07:34 | Outpatient (CLI) | payer MEDICAID | END 2021-11-11 07:35 | disposition critical access hospital (66) | LOC: EMS 07:34 | DX: R11.2 Nausea with vomiting, unspecified (principal); R10.31 Right lower quadrant pain; R10.32 Left lower quadrant pain; M54.50 Low back pain, unspecified | CPT/HCPCS: A0425; A0427; A0999 ==

== ENCOUNTER 2021-11-11 08:04 | Emergency (ER) | payer MEDICAID ==
--- NOTE | 2021-11-11 08:15 | ED Physician Documentation ---
PD HPI ABD PAIN - Stated complaint Stated Complaint: NAUSEA/VOMITING BACK PX - History obtained from History obtained from: Patient - History of Present Illness Timing - onset: How many days ago (4) Timing - duration: Days (4) Timing - details: Gradual onset, Still present Quality: Cramping, Aching, Pain Location: Periumbilical, LLQ Radiation: Lower back. No: Chest, Left flank, Right flank Improved by: No: Vomiting Worsened by: Eating, Moving, Palpation Associated symptoms: Nausea, Vomiting, Diarrhea (soft stools with some mucous per patient.). No: Fever, Hematemesis, Constipation, Hematochezia Similar symptoms before: Diagnosis (history of crohns by colonoscopy, Dr. Zurita, GI in [place].) Recently seen: Not recently seen Review of Systems Constitutional: reports: Chills, Fatigue. denies: Fever, Myalgias Nose: denies: Rhinorrhea / runny nose, Congestion Throat: denies: Sore throat Cardiac: denies: Chest pain / pressure Respiratory: denies: Cough GI: reports: Abdominal Pain, Nausea, Vomiting. denies: Constipation, Bloody / black stool : denies: Dysuria, Frequency Neurologic: reports: Generalized weakness. 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 - Present Medications Home Medications: Ambulatory Orders Medication Instructions Recorded Confirmed Docusate Sodium 100Mg Capsule 100 mg PO DAILY #10 cap 10/10/21 [Colace 100Mg Capsule] HYDROcod/ACETAM 5/325 [[place] 5/325] 1 ea PO Q6H PRN #18 tablet 10/10/21 Ondansetron Odt [Zofran] 4 mg TL Q6H PRN #20 tablet 10/10/21 dexAMETHasone [Decadron] 4 mg PO DAILY #7 tablet 10/10/21 Famotidine [Pepcid] 20 mg PO DAILY #20 tablet 11/11/21 HYDROcod/ACETAM 5/325 [[place] 5/325] 1 ea PO Q6H PRN #18 tablet 11/11/21 Meloxicam [Mobic] 7.5 mg PO BID 10 Days #20 tablet 11/11/21 Ondansetron Odt [Zofran] 4 mg TL Q6H PRN #30 tablet 11/11/21 dexAMETHasone [Decadron] 4 mg PO DAILY #7 tablet 11/11/21 - Allergies Allergies/Adverse Reactions: Allergies Allergy/AdvReac Type Severity Reaction Status Date / Time codeine AdvReac Nausea Verified 11/11/21 08:20 - Social History Does the pt smoke?: No Smoking Status: Never smoker Does the pt drink ETOH?: Yes Does the pt have substance abuse?: No - Immunizations Immunizations are current?: Yes Immunizations: TDAP >10years/unknown - POLST Patient has POLST: No PD ED PE NORMAL - Vitals Vital signs reviewed: Yes - General General: Alert and oriented X 3, Well developed/nourished, Other (Knees pulled up lying on her side in apparent pain.) - HEENT HEENT: Pharynx benign - Neck Neck: Supple, no meningeal sign, No adenopathy - Cardiac Cardiac: RRR, No murmur - Respiratory Respiratory: No respiratory distress, Clear bilaterally - Abdomen Abdomen: Soft, Non distended, No organomegaly, Other (Tender in the mid to left lower abdomen with local guarding and mild percussion tenderness. No rebound and no distention.). No: Normal bowel sounds (decreased) - Back Back: No CVA TTP - Derm Derm: Normal color, Warm and dry - Neuro Neuro: Alert and oriented X 3, No motor deficit, Normal speech Results - Vitals Vitals: Vital Signs - 24 hr 11/11/21 11/11/21 08:08 09:52 Temperature 35.6 C L Heart Rate 54 L 63 Respiratory 20 14 Rate Blood Pressure 199/80 H 109/69 O2 Saturation 99 99 Oxygen O2 Source Room air - Labs Labs: Laboratory Tests 11/11/21 11/11/21 11/11/21 08:16 08:29 08:29 WBC 15.9 H RBC 4.44 Hgb 12.5 Hct 38.8 MCV 87.4 MCH 28.2 MCHC 32.2 RDW 14.5 Plt Count 232 MPV 10.7 Neut # (Auto) 12.4 H Lymph # (Auto) 2.5 [place] # (Auto) 0.8 Eos # (Auto) 0.1 Baso # (Auto) 0.1 Absolute Nucleated RBC 0.00 Nucleated RBC % 0.0 ESR Sodium 138 Potassium 3.4 L Chloride 103 Carbon Dioxide 23 Anion Gap 12.0 BUN 10 Creatinine 0.8 Estimated GFR (MDRD) 74 L Glucose 188 H Calcium 9.3 Total Bilirubin 0.8 AST 30 ALT 24 Alkaline Phosphatase 46 Total Protein 7.6 Albumin 4.2 Globulin 3.4 Albumin/Globulin Ratio 1.2 Lipase 73 H Urine Color LT. YELLOW Urine Clarity SL. CLOUDY Urine pH 7.5 Ur Specific [place] 1.020 Urine Protein 30 H Urine Glucose (UA) 100 H Urine Ketones NEGATIVE Urine Occult Blood SMALL H Urine Nitrite NEGATIVE Urine Bilirubin NEGATIVE Urine Urobilinogen 0.2 (NORMAL) Ur Leukocyte Esterase NEGATIVE Urine RBC 0-5 Urine WBC 0-3 Ur Squamous Epith Cells RARE Squamous Amorphous Sediment Moderate Urine Bacteria Moderate H Ur Microscopic Review INDICATED Urine Culture Comments NOT INDICATED 11/11/21 08:29 WBC RBC Hgb Hct MCV MCH MCHC RDW Plt Count MPV Neut # (Auto) Lymph # (Auto) [place] # (Auto) Eos # (Auto) Baso # (Auto) Absolute Nucleated RBC Nucleated RBC % ESR 22 Sodium Potassium Chloride Carbon Dioxide Anion Gap BUN Creatinine Estimated GFR (MDRD) Glucose Calcium Total Bilirubin AST ALT Alkaline Phosphatase Total Protein Albumin Globulin Albumin/Globulin Ratio Lipase Urine Color Urine Clarity Urine pH Ur Specific [place] Urine Protein Urine Glucose (UA) Urine Ketones Urine Occult Blood Urine Nitrite Urine Bilirubin Urine Urobilinogen Ur Leukocyte Esterase Urine RBC Urine WBC Ur Squamous Epith Cells Amorphous Sediment Urine Bacteria Ur Microscopic Review Urine Culture Comments - Rads (name of study) abd/pelvic CT Radiology: Prelim report reviewed (right ovarian cyst without free fluid. No noted bowel wall inflammation. ), See rad report PD MEDICAL DECISION MAKING - ED course Complexity details: considered differential (Stated history of Crohn's. States has a GI in [place]. However CRP he is minimally elevated and CT does not show obvious bowel inflammation. Crohn's is still possible. Can treat as such with anti-inflammatories and pain medicine. I do not see a role for antibiotics.), d/w patient Departure - Departure Disposition: 01 Home, Self Care Clinical Impression: Lower abdominal pain, History of Crohn's disease Low back pain Qualifiers: Chronicity: chronic Back pain laterality: midline Sciatica presence: without sciatica Qualified Code(s): M54.50 - Low back pain, unspecified Ovarian cyst Qualifiers: Laterality: right Qualified Code(s): N83.201 - Unspecified ovarian cyst, right side Condition: Stable Record reviewed to determine appropriate education?: Yes Instructions: ED Abdominal Pain Female Non-Specific Abdominal Pain Follow-Up: Darrell Fierro MD [Primary Care Provider] - Anoop Espinoza MD [Physician No Access] - Prescriptions: dexAMETHasone [Decadron] 4 mg PO DAILY #7 tablet Meloxicam [Mobic] 7.5 mg PO BID 10 Days #20 tablet HYDROcod/ACETAM 5/325 [[place] 5/325] 1 ea PO Q6H PRN #18 tablet PRN Reason: Pain Famotidine [Pepcid] 20 mg PO DAILY #20 tablet Ondansetron Odt [Zofran] 4 mg TL Q6H PRN #30 tablet PRN Reason: Nausea / Vomiting Comments: Your CT scan does not show any localized inflammation through the intestine and no abscess or perforation. You may still be having a inflammatory process and flare of your Crohn's but is not evident per se on your CT scan. Incidental finding is a 2 cm right ovarian cyst. Follow-up is recommended typically on these with ultrasound repeat in a few months to see if its resolved. Otherwise gynecologic consultation might be indicated. For your abdominal pain, we will treat with a week of steroid dosing presuming some inflammatory component. Also ondansetron if needed for nausea. Use Tylenol every 4-6 hours for pain or hydrocodone if needed for worse pain. After you are done with the dexamethasone steroid dosing after a week, you can start a nonsteroidal anti-inflammatory. I wrote a prescription for meloxicam twice daily with food for 10 days. Hopefully this will take you up into the time of your new primary care appointment in November. Meanwhile you could also follow-up with Dr. Espinoza the security solutions architect you had seen in [place]. I transmitted your prescriptions to [facility] in [place]. I am prescribing a short course of narcotic pain medication for you. These are potentially dangerous and addictive medications that should be used carefully. These medications may constipate you. Take an kova-ymo-gkuvdid stool softener such as docusate twice daily with plenty of water while taking these medications. If you go 24 hours without a bowel movement, take [id number] MiraLAX, per package instructions. Do not drink or drive while taking these medications. If you received narcotic or sedating medications while in the emergency department do not drive for 24 hours. Store this medication in a safe, secure place and out of reach of children. It is a violation of federal law to give or sell this medication to another person or to use in a manner other than prescribed. The ED will not refill narcotic prescriptions, including prescriptions lost or stolen. You can dispose of unwanted [facility] or at several pharmacies such as [facility]. Discharge Date/Time: 11/11/21 10:21
[2021-11-11] MEDS ORDERED: HYDROmorphone 1 MG/ML CARPUJECT IVP STA (08:18)
[2021-11-11] MEDS ORDERED: DEXAMETHASONE 10 MG/ML VIAL IVP STA (08:20)
[2021-11-11] MEDS ORDERED: SODIUM CHLORIDE 0.9% 1,000 ML IV STA (08:20)
[2021-11-11] MEDS ORDERED: KETOROLAC 15 MG/ML VIAL IVP STA (08:20)
[2021-11-11 08:38] LABS: BILIRUBIN,URINE NEGATIVE (NEGATIVE); GLUCOSE, URINE (UA) 100 mg/dL (NEGATIVE); KETONES,URINE (UA) NEGATIVE (NEGATIVE); LEUKOCYTE ESTERASE, URINE NEGATIVE (NEGATIVE); NITRITE,URINE NEGATIVE (NEGATIVE); OCCULT BLOOD,URINE SMALL (NEGATIVE); PH,URINE 7.5 PH (5.0-7.5); PROTEIN,URINE 30 mg/dL (NEGATIVE); UROBILINOGEN,URINE 0.2 (NORMAL) E.U./dL (NORMAL)
[2021-11-11 08:39] LABS: BASOPHILS # (AUTO) 0.1 10^3/uL (0.0-0.1); BASOPHILS % (AUTO) 0.3 %; EOSINOPHILS # (AUTO) 0.1 10^3/uL (0.0-0.7); EOSINOPHILS % (AUTO) 0.7 %; HCT - HEMATOCRIT 38.8 % (37.0-47.0); HGB - HEMOGLOBIN 12.5 g/dL (12.0-16.0); LYMPHOCYTES # (AUTO) 2.5 10^3/uL (1.5-3.5); LYMPHOCYTES % (AUTO) 15.5 %; MEAN CORPUSCULAR HEMOGLOBIN 28.2 pg (27.0-31.0); MEAN CORPUSCULAR HGB CONC 32.2 g/dL (32.0-36.0); MEAN CORPUSCULAR VOLUME 87.4 fL (81.0-99.0); MEAN PLATELET VOLUME 10.7 fL (7.9-10.8); MONOCYTES # (AUTO) 0.8 10^3/uL (0.0-1.0); MONOCYTES % (AUTO) 5.2 %; NEUTROPHILS # (AUTO) 12.4 10^3/uL (1.5-6.6); PLT - PLATELET COUNT 232 10^3/uL (130-450); RED BLOOD COUNT 4.44 10^6/uL (4.20-5.40); RED CELL DISTRIBUTION WIDTH 14.5 % (12.0-15.0); WHITE BLOOD COUNT 15.9 x10^3/uL (4.8-10.8)
[2021-11-11 08:42] LABS: CLARITY,URINE SL. CLOUDY (CLEAR)
[2021-11-11 08:47] LABS: RBC,URINE 0-5 /HPF (0-5); SQUAMOUS EPITHELIAL CELL,UR RARE Squamous (<= Few); WBC,URINE 0-3 /HPF (0-5)
[2021-11-11 08:48] LABS: AMORPHOUS SEDIMENT,UR Moderate /LPF; BACTERIA,URINE Moderate /HPF (None Seen)
[2021-11-11 08:49] LABS: ALBUMIN 4.2 g/dL (3.2-5.5); ALBUMIN/GLOBULIN RATIO 1.2 (1.0-2.2); BILIRUBIN,TOTAL 0.8 mg/dL (0.2-1.0); CALCIUM 9.3 mg/dL (8.5-10.3); CREATININE 0.8 mg/dL (0.4-1.0); POTASSIUM 3.4 mmol/L (3.5-5.0); TOTAL PROTEIN 7.6 g/dL (6.7-8.2)
--- NOTE | 2021-11-11 09:22 | CT Report ---
PROCEDURE: Abdomen/Pelvis WO INDICATIONS: abd pain, h/o crohns TECHNIQUE: Noncontrast 5 mm thick sections acquired from the diaphragms to the symphysis. 5 mm coronal and sagi ttal reformats were then performed. For radiation dose reduction, the following was used: automated exposure control, adjustment of mA and/or kV according to patient size. COMPARISON: None. FINDINGS: Image quality: Excellent. ABDOMEN: Lung bases: Lung bases are clear. Heart size is normal. Solid organs: Liver and spleen are normal in size. Gallbladder is normal. Pancreas is normal in co ntours. No adrenal nodules. Kidneys are normal in size, without hydronephrosis or nephrolithiasis. 2.9 cm simple left renal cyst. Peritoneum and bowel: Unenhanced bowel loops demonstrate normal wall thickness and caliber. No free fluid or air. The appendix is not identified, however there are no secondary CT findings to suggest no inflammation. Nodes and vessels: No retroperitoneal or mesenteric adenopathy by size criteria. Aorta and inferior vena cava are normal in caliber. Miscellaneous: No ventral hernias. PELVIS: Genitourinary: Bladder wall thickness is normal. 2 cm right ovarian cyst. Miscellaneous: No inguinal hernias or adenopathy. Bones: Multilevel degenerative changes. Degenerative disc disease with intradiscal gas at L5-S1 with disc osteophytes causing foraminal stenosis at this level. Diffuse disc bulges at L3-4 and L4-5. Deg enerative disc disease is also seen in the lower thoracic spine. No suspicious bony lesions. No vert ebral body compression fractures. IMPRESSION: 1. No acute abdominal or pelvic abnormality. No inflammation to suggest an acute manifestation of Doctor Of Nursing Practice hn's disease. 2. Simple right ovarian cyst and simple left renal cyst. Reviewed by: Yann Navarro on 11/11/2021 9:21 AM PDT Approved by: Yann Navarro on 11/11/2021 9:21 AM PDT Station ID: [id number]
[2021-11-11 09:52] VITALS: BP 109/69
== END 2021-11-11 10:21 | disposition home or self-care (01) ==
LOC: EDUNIT# → ED 08:04
DX: R10.30 Lower abdominal pain, unspecified (principal); K50.90 Crohn's disease, unspecified, without complications
CPT/HCPCS: 36415; 74176; 80053; 81001; 83690; 85025; 85651; 96374; 96375; 99284; J1170; 0097U; 81003; 87086

== ENCOUNTER 2021-11-13 09:14 | Outpatient (CLI) | payer MEDICAID | END 2021-11-13 09:15 | disposition critical access hospital (66) | LOC: EMS 09:14 | DX: R10.9 Unspecified abdominal pain (principal); R11.2 Nausea with vomiting, unspecified; R19.7 Diarrhea, unspecified | CPT/HCPCS: A0425; A0427; A0999 ==

== ENCOUNTER 2021-11-13 09:42 | Emergency (ER) | payer MEDICAID ==
[2021-11-13] MEDS ORDERED: HYDROmorphone 1 MG/ML CARPUJECT IVP STA (09:59)
[2021-11-13] MEDS ORDERED: SODIUM CHLORIDE 0.9% 1,000 ML IV STA (09:59)
[2021-11-13] MEDS ORDERED: HALOPERIDOL 5 MG/ML VIAL IVP STA (10:00)
--- NOTE | 2021-11-13 10:02 | ED Physician Documentation ---
PD HPI ABD PAIN - Stated complaint Stated Complaint: N/V/D - Chief complaint Chief Complaint: Abd Pain - History obtained from History obtained from: Patient, EMS - Additional information Additional information: 55-year-old woman with longstanding history of Crohn's Presents by ambulance uncooperative with history and screaming. I am able to get from her that she has a longstanding history of Crohn's with multiple bowel surgeries. Current pain has been going on for maybe a few days and is associated with vomiting and soft stools. History is limited because she is generally uncooperative and f lailing in bed nearly kicking staff. I am able to ascertain that she has been using marijuana daily recently. Review of the chart shows that she has been seen here twice in the last month or so with work-up showing leukocytosis but normal sed rate, relatively unremarkable chemistries save modestly high glucoses and a CT done 2 days ago showing a right ovarian cyst and a left renal cyst without evidence of active Crohn's disease. 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 - Present Medications Home Medications: Ambulatory Orders Medication Instructions Recorded Confirmed Docusate Sodium 100Mg Capsule 100 mg PO DAILY #10 cap 10/10/21 [Colace 100Mg Capsule] HYDROcod/ACETAM 5/325 [[place] 5/325] 1 ea PO Q6H PRN #18 tablet 10/10/21 Ondansetron Odt [Zofran] 4 mg TL Q6H PRN #20 tablet 10/10/21 dexAMETHasone [Decadron] 4 mg PO DAILY #7 tablet 10/10/21 Famotidine [Pepcid] 20 mg PO DAILY #20 tablet 11/11/21 HYDROcod/ACETAM 5/325 [[place] 5/325] 1 ea PO Q6H PRN #18 tablet 11/11/21 Meloxicam [Mobic] 7.5 mg PO BID 10 Days #20 tablet 11/11/21 Ondansetron Odt [Zofran] 4 mg TL Q6H PRN #30 tablet 11/11/21 dexAMETHasone [Decadron] 4 mg PO DAILY #7 tablet 11/11/21 Oxycodone HCl/Acetaminophen 1 - 2 each PO Q6H PRN #7 tablet 11/13/21 [Percocet 5-325 mg Tablet] Promethazine Supp [Phenergan Supp] 25 mg IN Q6H PRN #15 supp 11/13/21 - Allergies Allergies/Adverse Reactions: Allergies Allergy/AdvReac Type Severity Reaction Status Date / Time codeine AdvReac Nausea Verified 11/13/21 09:49 - Social History Does the pt smoke?: No Smoking Status: Never smoker Does the pt drink ETOH?: Yes Does the pt have substance abuse?: No - Immunizations Immunizations are current?: Yes Immunizations: TDAP >10years/unknown - POLST Patient has POLST: No PD ED PE NORMAL - Vitals Vital signs reviewed: Yes - General General: Other (Flailing in bed and uncooperative. She will answer questions but then just screams.) - HEENT HEENT: PERRL, EOMI - Neck Neck: Supple, no meningeal sign, No bony TTP - Cardiac Cardiac: RRR, No murmur - Respiratory Respiratory: No respiratory distress, Clear bilaterally - Abdomen Abdomen: Normal bowel sounds, Soft, Other (Well-healed abdominal scars, multiple, no clear tenderness on initial evaluation but history is limited by patient cooperation.) - Back Back: No CVA TTP, No spinal TTP - Derm Derm: Normal color, Warm and dry - Extremities Extremities: No edema, No calf tenderness / cord - Neuro Eye Opening: Spontaneous Motor: Obeys Commands - Psych Psych: Other (Agitated and uncooperative) Results - Vitals Vitals: Vital Signs - 24 hr 11/13/21 11/13/21 11/13/21 09:49 10:10 10:32 Temperature 37 C Heart Rate 116 H 72 65 Respiratory 20 16 20 Rate Blood Pressure 208/100 H 173/96 H 105/58 L O2 Saturation 100 95 99 11/13/21 11/13/21 11/13/21 11:11 11:32 12:00 Temperature Heart Rate 79 78 74 Respiratory 16 20 17 Rate Blood Pressure 121/66 134/76 H 134/76 H O2 Saturation 100 100 98 Oxygen O2 Source Room air - Labs Labs: Laboratory Tests 11/13/21 11/13/21 11/13/21 10:00 10:00 12:09 WBC 18.9 H RBC 4.45 Hgb 12.5 Hct 37.5 MCV 84.3 MCH 28.1 MCHC 33.3 RDW 14.3 Plt Count 242 MPV 11.0 H Neut # (Auto) 14.4 H Lymph # (Auto) 3.2 [place] # (Auto) 1.1 H Eos # (Auto) 0.0 Baso # (Auto) 0.1 Absolute Nucleated RBC 0.00 Nucleated RBC % 0.0 Sodium 138 Potassium 3.4 L Chloride 100 L Carbon Dioxide 24 Anion Gap 14.0 H BUN 19 Creatinine 0.9 Estimated GFR (MDRD) 65 L Glucose 164 H Calcium 9.4 Total Bilirubin 0.7 AST 39 ALT 31 Alkaline Phosphatase 44 Total Protein 7.8 Albumin 4.6 Globulin 3.2 Albumin/Globulin Ratio 1.4 Lipase 56 H Urine Color YELLOW Urine Clarity SL. CLOUDY Urine pH 8.0 H Ur Specific [place] 1.015 Urine Protein TRACE Urine Glucose (UA) NEGATIVE Urine Ketones NEGATIVE Urine Occult Blood SMALL H Urine Nitrite NEGATIVE Urine Bilirubin NEGATIVE Urine Urobilinogen 0.2 (NORMAL) Ur Leukocyte Esterase NEGATIVE Urine RBC None Seen Urine WBC 0-3 Ur Squamous Epith Cells RARE Squamous Amorphous Sediment Moderate Urine Bacteria Rare Ur Microscopic Review INDICATED Urine Culture Comments NOT INDICATED Urine HCG, Qual NEGATIVE PD MEDICAL DECISION MAKING - ED course ED course: 55-year-old woman with history of Crohn's presents with severe abdominal pain restlessness and vomiting. Fairly benign exam albeit both exam and history are somewhat limited on initial evaluation due to limited cooperation. After the administration of 1 mg of Dilaudid and 2.5 mg of Haldol IV she was feeling much better and pain-free, no longer agitated. I discussed with her that given the recent CT showing lack of inflammation and her daily marijuana use that that may likely be causative and we discussed the diagnosis of cannabinoid hyperemesis syndrome as well as its treatment (abstention). She was feeling much better and she was nontender on reevaluation. She wondered if she is to be admitted to the hospital but her symptoms had completely gone so it seems like outpatient management would be more appropriate. Departure - Departure Disposition: 01 Home, Self Care Clinical Impression: Cannabinoid hyperemesis syndrome Condition: Good Record reviewed to determine appropriate education?: Yes Instructions: ED Abdominal Pain Female Non-Specific Abdominal Pain Prescriptions: Oxycodone HCl/Acetaminophen [Percocet 5-325 mg Tablet] 1 - 2 each PO Q6H PRN #7 tablet PRN Reason: pain Promethazine Supp [Phenergan Supp] 25 mg IN Q6H PRN #15 supp PRN Reason: Nausea / Vomiting Comments: As discussed, given your symptoms and the lack of abnormal findings on recent CT , I do not think your current symptoms are related to Crohn's. More likely related to cannabinoid hyperemesis syndrome. I would recommend ceasing or at least cutting way back on THC containing products. Return anytime if worse, follow-up with your primary care physician, next available appointment. I [facility] prescriptions [facility] in [place]. I am prescribing a short course of narcotic pain medication for you. These are potentially dangerous and addictive medications that should be used carefully. These medications may constipate you. Take an [id number] stool softener (docusate) twice daily with plenty of water while taking these medications. If you go 24 hours without a bowel movement, take [id number] miralax, per package instructions. Do not drink or drive while taking these medications. If you received narcotic or sedating medications while in the emergency department, do not drive for 24 hours. Store this medication in a safe, secure place and out of reach of children. It is a violation of federal law to give or sell this medication to another person or to use in a manner other than prescribed. The ED will not refill narcotic prescriptions, including prescriptions lost or stolen. To dispose of unwanted medications: 1. [facility] at [address] in [place] has a medication drop box. They accept prescription medications (in pill form) Monday through Monday 9:00 a.m. to 5:00 p.m. 2. The [facility] [employer] accepts prescription medications (in pill form only) for disposal year round. Call for more information. 3. Contact the [facility] for the next [facility] sponsored prescription drug collection event. , [phone], or [phone]; Note that many narcotic pain relievers also contain Tylenol/acetaminophen. Please ensure that your total dose of acetaminophen from all sources does not exceed 3 g (3000 mg) per day. Forms: Activity restrictions Discharge Date/Time: 11/13/21 12:28
[2021-11-13 10:09] LABS: BASOPHILS # (AUTO) 0.1 10^3/uL (0.0-0.1); BASOPHILS % (AUTO) 0.3 %; EOSINOPHILS % (AUTO) 0.2 %; HCT - HEMATOCRIT 37.5 % (37.0-47.0); HGB - HEMOGLOBIN 12.5 g/dL (12.0-16.0); LYMPHOCYTES # (AUTO) 3.2 10^3/uL (1.5-3.5); MEAN CORPUSCULAR HEMOGLOBIN 28.1 pg (27.0-31.0); MEAN CORPUSCULAR HGB CONC 33.3 g/dL (32.0-36.0); MEAN CORPUSCULAR VOLUME 84.3 fL (81.0-99.0); MONOCYTES # (AUTO) 1.1 10^3/uL (0.0-1.0); MONOCYTES % (AUTO) 5.8 %; NEUTROPHILS # (AUTO) 14.4 10^3/uL (1.5-6.6); NEUTROPHILS % (AUTO) 76.3 %; PLT - PLATELET COUNT 242 10^3/uL (130-450); RED BLOOD COUNT 4.45 10^6/uL (4.20-5.40); RED CELL DISTRIBUTION WIDTH 14.3 % (12.0-15.0); WHITE BLOOD COUNT 18.9 x10^3/uL (4.8-10.8)
[2021-11-13 10:19] LABS: ALBUMIN 4.6 g/dL (3.2-5.5); ALBUMIN/GLOBULIN RATIO 1.4 (1.0-2.2); BILIRUBIN,TOTAL 0.7 mg/dL (0.2-1.0); CALCIUM 9.4 mg/dL (8.5-10.3); CREATININE 0.9 mg/dL (0.4-1.0); POTASSIUM 3.4 mmol/L (3.5-5.0); TOTAL PROTEIN 7.8 g/dL (6.7-8.2)
[2021-11-13 11:32] VITALS: BP 134/76
[2021-11-13 12:15] LABS: BILIRUBIN,URINE NEGATIVE (NEGATIVE); GLUCOSE, URINE (UA) NEGATIVE (NEGATIVE); KETONES,URINE (UA) NEGATIVE (NEGATIVE); LEUKOCYTE ESTERASE, URINE NEGATIVE (NEGATIVE); NITRITE,URINE NEGATIVE (NEGATIVE); OCCULT BLOOD,URINE SMALL (NEGATIVE); PROTEIN,URINE TRACE mg/dL (NEGATIVE); UROBILINOGEN,URINE 0.2 (NORMAL) E.U./dL (NORMAL)
[2021-11-13 12:24] LABS: CLARITY,URINE SL. CLOUDY (CLEAR); HCG UR QUAL NEGATIVE; RBC,URINE None Seen /HPF (0-5); WBC,URINE 0-3 /HPF (0-5)
[2021-11-13 12:25] LABS: AMORPHOUS SEDIMENT,UR Moderate /LPF; BACTERIA,URINE Rare /HPF (None Seen); SQUAMOUS EPITHELIAL CELL,UR RARE Squamous (<= Few)
== END 2021-11-13 12:28 | disposition home or self-care (01) ==
LOC: EDUNIT# → ED 09:42
DX: R11.2 Nausea with vomiting, unspecified (principal); F12.90 Cannabis use, unspecified, uncomplicated
CPT/HCPCS: 36415; 80053; 81001; 81025; 83690; 85025; 96374; 96375; 99281; 99283; J1170; 81003; 87086

== ENCOUNTER 2021-12-10 08:00 | Outpatient (CLI) | payer MEDICAID ==
--- NOTE | 2021-12-10 20:39 | XRAY Report ---
PROCEDURE: Wrist 3 View LT INDICATIONS: LEFT WRIST CONTUSION TECHNIQUE: 3 views of the wrist were acquired. COMPARISON: None FINDINGS: Bones: No fractures or dislocations. No suspicious bony lesions. Soft tissues: No suspicious soft tissue calcifications. IMPRESSION: No fracture. No osseous lesion. If symptoms and/or clinical concern for pathology persists, further a ssessment with repeat plain film radiographs (7-10 days) or advanced imaging (CT, MR, bone scan) shou ld be considered. Reviewed by: Darlene Brown MD, PhD on 12/10/2021 8:38 PM PDT Approved by: Darlene Brown MD, PhD on 12/10/2021 8:38 PM PDT Station ID: [id number]
== END 2021-12-10 23:59 | disposition home or self-care (01) ==
LOC: DI.S 08:00
PROVIDERS: ATTEND Physician Assistant Medical
DX: S60.212A Contusion of left wrist, initial encounter (principal)

== ENCOUNTER 2022-09-22 07:27 | Outpatient (CLI) | payer MEDICAID | END 2022-09-22 07:28 | disposition critical access hospital (66) | LOC: EMS 07:27 | DX: R10.84 Generalized abdominal pain (principal); R11.2 Nausea with vomiting, unspecified; R19.7 Diarrhea, unspecified | CPT/HCPCS: A0425; A0427; A0999 ==

== ENCOUNTER 2022-09-22 07:47 | Emergency (ER) | payer MEDICAID ==
--- NOTE | 2022-09-22 08:00 | ED Physician Documentation ---
PD HPI NVD - Stated complaint Stated Complaint: ABD Pain - Chief complaint Chief Complaint: Abd Pain - History obtained from History obtained from: Patient - History of Present Illness Timing - onset: How many days ago (3) Timing - duration: Days (3) Timing - details: Gradual onset, Still present, Waxing and waning Associated symptoms: Abdominal pain, Loss of appetite, Other (nausea and vomiting, without diarrhea. Has had some soft stool without blood/melena/mucous.). No: Near syncope / syncope Contributing factors: Other (states history of Crohns, not on medications. States gets episodes like this about 2-3 times daily.). No: Sick contact, Bad food Improved by: No: Eating, Vomiting, BM Worsened by: Eating Similar symptoms before: No diagnosis Recently seen: Not recently seen Review of Systems Constitutional: denies: Fever, Chills, Myalgias Nose: denies: Rhinorrhea / runny nose, Congestion Throat: denies: Sore throat Respiratory: denies: Cough GI: reports: Abdominal Pain, Nausea, Vomiting. denies: Diarrhea, Bloody / black stool : denies: Dysuria Neurologic: reports: Generalized weakness, Altered mental status (tired from no sleep due to symptoms.). 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 - Present Medications Home Medications: Ambulatory Orders Medication Instructions Recorded Confirmed Docusate Sodium 100Mg Capsule 100 mg PO DAILY #10 cap 10/10/21 [Colace 100Mg Capsule] HYDROcod/ACETAM 5/325 [[place] 5/325] 1 ea PO Q6H PRN #18 tablet 10/10/21 Ondansetron Odt [Zofran] 4 mg TL Q6H PRN #20 tablet 10/10/21 dexAMETHasone [Decadron] 4 mg PO DAILY #7 tablet 10/10/21 Famotidine [Pepcid] 20 mg PO DAILY #20 tablet 11/11/21 HYDROcod/ACETAM 5/325 [[place] 5/325] 1 ea PO Q6H PRN #18 tablet 11/11/21 Meloxicam [Mobic] 7.5 mg PO BID 10 Days #20 tablet 11/11/21 Ondansetron Odt [Zofran] 4 mg TL Q6H PRN #30 tablet 11/11/21 dexAMETHasone [Decadron] 4 mg PO DAILY #7 tablet 11/11/21 Oxycodone HCl/Acetaminophen 1 - 2 each PO Q6H PRN #7 tablet 11/13/21 [Percocet 5-325 mg Tablet] Promethazine Supp [Phenergan Supp] 25 mg [place] Q6H PRN #15 supp 11/13/21 Ondansetron Odt [Zofran] 4 mg TL Q6H PRN #10 tablet 02/04/22 Ondansetron Odt [Zofran] 4 mg TL Q6H PRN #20 tablet 09/22/22 - Allergies Allergies/Adverse Reactions: Allergies Allergy/AdvReac Type Severity Reaction Status Date / Time codeine AdvReac Nausea Verified 09/22/22 07:56 - Social History Does the pt smoke?: No Smoking Status: Never smoker Does the pt drink ETOH?: Yes Does the pt have substance abuse?: No - Immunizations Immunizations are current?: Yes Immunizations: TDAP >10years/unknown - POLST Patient has POLST: No PD ED PE NORMAL - Vitals Vital signs reviewed: Yes - General General: Alert and oriented X 3, Well developed/nourished, Other (appears anxious and hyperactive, lifting legs and rolling around on cart. yelling out in pain at times. Sleepy but answers questions promptly and directly. ) - HEENT HEENT: PERRL (nonicteric.), Pharynx benign. No: Moist mucous membranes - Neck Neck: Supple, no meningeal sign, No adenopathy - Cardiac Cardiac: RRR, No murmur - Respiratory Respiratory: Clear bilaterally - Abdomen Abdomen: Soft, Non distended. No: Normal bowel sounds (decreased) Results - Vitals Vitals: Vital Signs - 24 hr 09/22/22 09/22/22 07:53 10:03 Temperature 36.3 C L Heart Rate 84 77 Respiratory 20 20 Rate Blood Pressure 102/88 H 89/58 L O2 Saturation 100 93 Oxygen O2 Source Room air - Labs Labs: Laboratory Tests 09/22/22 09/22/22 09/22/22 08:05 08:05 08:09 WBC 19.4 H RBC 4.81 Hgb 13.4 Hct 39.0 MCV 81.1 MCH 27.9 MCHC 34.4 RDW 13.4 Plt Count 253 MPV 10.1 Neut # (Auto) 16.7 H Lymph # (Auto) 1.6 [place] # (Auto) 1.0 Eos # (Auto) 0.0 Baso # (Auto) 0.0 Absolute Nucleated RBC 0.00 Nucleated RBC % 0.0 ESR 19 Sodium 133 L Potassium 3.2 L Chloride 99 L Carbon Dioxide 22 Anion Gap 12.0 BUN 26 H Creatinine 0.8 Estimated GFR (MDRD) 74 L Glucose 128 H Calcium 9.6 Magnesium Total Bilirubin 1.2 H AST 39 ALT 28 Alkaline Phosphatase 54 C-Reactive Protein Total Protein 8.4 H Albumin 4.8 Globulin 3.6 Albumin/Globulin Ratio 1.3 Lipase 35 Urine Color Urine Clarity Urine pH Ur Specific [place] Urine Protein Urine Glucose (UA) Urine Ketones Urine Occult Blood Urine Nitrite Urine Bilirubin Urine Urobilinogen Ur Leukocyte Esterase Urine RBC Urine WBC Ur Squamous Epith Cells Urine Bacteria Ur Microscopic Review Urine Culture Comments 09/22/22 09/22/22 08:09 09:32 WBC RBC Hgb Hct MCV MCH MCHC RDW Plt Count MPV Neut # (Auto) Lymph # (Auto) [place] # (Auto) Eos # (Auto) Baso # (Auto) Absolute Nucleated RBC Nucleated RBC % ESR Sodium Potassium Chloride Carbon Dioxide Anion Gap BUN Creatinine Estimated GFR (MDRD) Glucose Calcium Magnesium 2.2 Total Bilirubin AST ALT Alkaline Phosphatase C-Reactive Protein < 1.0 Total Protein Albumin Globulin Albumin/Globulin Ratio Lipase Urine Color LT. YELLOW Urine Clarity CLEAR Urine pH 6.0 Ur Specific [place] 1.010 Urine Protein NEGATIVE Urine Glucose (UA) NEGATIVE Urine Ketones 15 H Urine Occult Blood MODERATE H Urine Nitrite NEGATIVE Urine Bilirubin NEGATIVE Urine Urobilinogen 0.2 (NORMAL) Ur Leukocyte Esterase NEGATIVE Urine RBC 0-5 Urine WBC 0-3 Ur Squamous Epith Cells RARE Squamous Urine Bacteria Rare Ur Microscopic Review INDICATED Urine Culture Comments NOT INDICATED PD Medical Decision Making - ED course Complexity details: reviewed old records (i reviewed the discharge comments from prior er visits and also prior lab test trends. ), reviewed results, considered differential, d/w patient ED course: Patient states history of crohns and has had intermittent similar episodes to the current one. However is not on UC/Crohns type meds. Consider alternative of cannibis related hyperemesis. She did immprove with droperidol antiemetic as well as Toradol with some abd cramping still remaining. However, abd exam is still not having localized tenderness nor peritoneal signs. She is able to take PO fluids afte the meds. She is feeling improved enough to go home wiht scripts for symptoms to use pRN. Departure - Departure Disposition: 01 Home, Self Care Clinical Impression: Nausea and vomiting, Abdominal pain Condition: Stable Record reviewed to determine appropriate education?: Yes Instructions: ED Nausea Vomiting Prescriptions: Ondansetron Odt [Zofran] 4 mg TL Q6H PRN #20 tablet PRN Reason: Nausea / Vomiting Comments: Small frequent fluids and bland food initially today. Progress diet as tolerated if your stomach is doing okay. Ondansetron every 4-6 hours if needed for nausea. You could use some antacid such as Maalox or Mylanta if needed for upper stomach discomfort. It is unclear the cause of your symptoms at this time. I do not feel that we need to do any larger testing such as CT scans etc. That said if you have recurring symptoms or worse pain or fevers or other concerns through the day today or tomorrow then return to the ER. I sent prescription for the ondansetron to [facility] in [place]. Discharge Date/Time: 09/22/22 11:51
[2022-09-22] MEDS ORDERED: SODIUM CHLORIDE 0.9% 1,000 ML IV STA (08:09)
[2022-09-22] MEDS ORDERED: KETOROLAC 15 MG/ML VIAL IVP STA (08:09)
[2022-09-22] MEDS ORDERED: FAMOTIDINE 20 MG/2 ML VIAL IVP STA (08:09)
[2022-09-22] MEDS ORDERED: DROPERIDOL 5 MG/2 ML VIAL IVP STA (08:09)
[2022-09-22 08:12] LABS: BASOPHILS % (AUTO) 0.2 %; EOSINOPHILS % (AUTO) 0.1 %; HGB - HEMOGLOBIN 13.4 g/dL (12.0-16.0); LYMPHOCYTES # (AUTO) 1.6 10^3/uL (1.5-3.5); LYMPHOCYTES % (AUTO) 8.3 %; MEAN CORPUSCULAR HEMOGLOBIN 27.9 pg (27.0-31.0); MEAN CORPUSCULAR HGB CONC 34.4 g/dL (32.0-36.0); MEAN CORPUSCULAR VOLUME 81.1 fL (81.0-99.0); MEAN PLATELET VOLUME 10.1 fL (7.9-10.8); NEUTROPHILS # (AUTO) 16.7 10^3/uL (1.5-6.6); NEUTROPHILS % (AUTO) 85.9 %; PLT - PLATELET COUNT 253 10^3/uL (130-450); RED BLOOD COUNT 4.81 10^6/uL (4.20-5.40); RED CELL DISTRIBUTION WIDTH 13.4 % (12.0-15.0); WHITE BLOOD COUNT 19.4 x10^3/uL (4.8-10.8)
[2022-09-22 08:23] LABS: ALBUMIN 4.8 g/dL (3.2-5.5); ALBUMIN/GLOBULIN RATIO 1.3 (1.0-2.2); BILIRUBIN,TOTAL 1.2 mg/dL (0.2-1.0); CALCIUM 9.6 mg/dL (8.5-10.3); CREATININE 0.8 mg/dL (0.4-1.0); POTASSIUM 3.2 mmol/L (3.5-5.0); TOTAL PROTEIN 8.4 g/dL (6.7-8.2)
[2022-09-22 08:38] LABS: MAGNESIUM 2.2 mg/dL (1.7-2.8)
[2022-09-22 08:44] LABS: CRP - C-REACTIVE PROTEIN < 1.0 mg/dL (0-1.0)
[2022-09-22] MEDS ORDERED: LACTATED RINGERS 1,000 ML IV STA (08:48)
[2022-09-22] MEDS ORDERED: HYDROmorphone 1 MG/ML CARPUJECT IVP STA (09:11)
[2022-09-22 09:51] LABS: BILIRUBIN,URINE NEGATIVE (NEGATIVE); GLUCOSE, URINE (UA) NEGATIVE (NEGATIVE); KETONES,URINE (UA) 15 mg/dL (NEGATIVE); LEUKOCYTE ESTERASE, URINE NEGATIVE (NEGATIVE); NITRITE,URINE NEGATIVE (NEGATIVE); OCCULT BLOOD,URINE MODERATE (NEGATIVE); PROTEIN,URINE NEGATIVE (NEGATIVE); UROBILINOGEN,URINE 0.2 (NORMAL) E.U./dL (NORMAL)
[2022-09-22 10:00] LABS: BACTERIA,URINE Rare /HPF (None Seen); CLARITY,URINE CLEAR (CLEAR); RBC,URINE 0-5 /HPF (0-5); SQUAMOUS EPITHELIAL CELL,UR RARE Squamous (<= Few); WBC,URINE 0-3 /HPF (0-5)
[2022-09-22 10:05] VITALS: BP 89/58
== END 2022-09-22 11:51 | disposition home or self-care (01) ==
LOC: EDUNIT# → ED 07:47
DX: R10.9 Unspecified abdominal pain (principal); R11.2 Nausea with vomiting, unspecified
CPT/HCPCS: 36415; 80053; 81001; 83690; 83735; 85025; 85651; 86140; 96374; 96375; 99283; 99285; J1170; J7120; 81003; 87086

== ENCOUNTER 2023-01-30 15:07 | Outpatient (CLI) | payer MEDICAID | END 2023-01-30 23:59 | disposition EMS.NT | LOC: EMS 15:07 | DX: R46.89 Other symptoms and signs involving appearance and behavior (principal) ==

== ENCOUNTER 2023-01-30 16:12 | Emergency (ER) | payer OTHER, MEDICAID ==
[2023-01-30 16:22] VITALS: BP 167/105; O2SAT 100
--- NOTE | 2023-01-30 16:30 | ED Physician Documentation ---
History of Present Illness - Stated complaint Stated Complaint: FIT - Chief complaint Chief Complaint: General - History obtained from History obtained from: Patient - History of Present Illness Timing: Today Pain level max: 0 Pain level now: 0 - Additonal information Additional information: Patient brought in by police for a "fit for confinement". They do not have any concerns about the patient. The patient denies any acute injuries. She states she has chronic left shoulder pain that is worse after being handcuffed. She denies any falls or trauma. She states she has not used any drugs today. She denies taking any medications at home. She is upset about to being arrested. Review of Systems Constitutional: denies: Fever Nose: denies: Rhinorrhea / runny nose, Congestion Respiratory: denies: Cough GI: denies: Abdominal Pain, Nausea, Vomiting, Diarrhea Skin: denies: Rash Musculoskeletal: denies: Neck pain, Back pain Neurologic: denies: Headache, Head injury PD PAST MEDICAL HISTORY - Past Medical History Cardiovascular: None Respiratory: None Neuro: None Endocrine/Autoimmune: HyPOthyroidism GI: Hepatitis, Crohn's disease : None HEENT: Other Psych: Anxiety, Panic attacks, Post traumatic stress disorder Musculoskeletal: Other Derm: None - Past Surgical History Past Surgical History: Yes 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 - Present Medications Home Medications: Ambulatory Orders Medication Instructions Recorded Confirmed Docusate Sodium 100Mg Capsule 100 mg PO DAILY #10 cap 10/10/21 [Colace 100Mg Capsule] HYDROcod/ACETAM 5/325 [[place] 5/325] 1 ea PO Q6H PRN #18 tablet 10/10/21 Ondansetron Odt [Zofran] 4 mg TL Q6H PRN #20 tablet 10/10/21 dexAMETHasone [Decadron] 4 mg PO DAILY #7 tablet 10/10/21 Famotidine [Pepcid] 20 mg PO DAILY #20 tablet 11/11/21 HYDROcod/ACETAM 5/325 [[place] 5/325] 1 ea PO Q6H PRN #18 tablet 11/11/21 Meloxicam [Mobic] 7.5 mg PO BID 10 Days #20 tablet 11/11/21 Ondansetron Odt [Zofran] 4 mg TL Q6H PRN #30 tablet 11/11/21 dexAMETHasone [Decadron] 4 mg PO DAILY #7 tablet 11/11/21 Oxycodone HCl/Acetaminophen 1 - 2 each PO Q6H PRN #7 tablet 11/13/21 [Percocet 5-325 mg Tablet] Promethazine Supp [Phenergan Supp] 25 mg [place] Q6H PRN #15 supp 11/13/21 Ondansetron Odt [Zofran] 4 mg TL Q6H PRN #10 tablet 02/04/22 Ondansetron Odt [Zofran] 4 mg TL Q6H PRN #20 tablet 09/22/22 - Allergies Allergies/Adverse Reactions: Allergies Allergy/AdvReac Type Severity Reaction Status Date / Time codeine AdvReac Nausea Verified 01/30/23 16:15 - Social History Does the pt smoke?: No Smoking Status: Never smoker Does the pt drink ETOH?: Yes Does the pt have substance abuse?: No - Immunizations Immunizations are current?: Yes Immunizations: TDAP >10years/unknown - POLST Patient has POLST: No PD ED PE NORMAL - Vitals Vital signs reviewed: Yes - General General: Alert and oriented X 3, No acute distress, Well developed/nourished, Other (Angry outburst, but does calm down and will answer questions when not speaking with police) - HEENT HEENT: Atraumatic, PERRL, Moist mucous membranes, Pharynx benign - Neck Neck: Supple, no meningeal sign - Cardiac Cardiac: RRR, Strong equal pulses - Respiratory Respiratory: No respiratory distress, Clear bilaterally - Abdomen Abdomen: Soft, Non tender, Non distended - Back Back: No spinal TTP - Derm Derm: Warm and dry, No rash - Extremities Extremities: No deformity, No tenderness to palpate, Other (moving all limbs without difficulty) - Neuro Neuro: Alert and oriented X 3 - Psych Psych: Other (Angry outburst, but does calm down and will answer questions when not speaking with police) Results - Vitals Vitals: Vital Signs - 24 hr 01/30/23 16:15 Temperature 36.2 C L Heart Rate 127 H Respiratory 24 Rate Blood Pressure 167/105 H O2 Saturation 100 Oxygen O2 Source Room air PD Medical Decision Making - ED course Complexity details: considered differential, d/w patient ED course: Patient has no medical complaints. She refuses any blood work or urinalysis. The police who brought her to the emergency department have no specific concerns. Patient denies any drug use today. Patient was intermittently aggressive with police, but was calm and cooperative when speaking with me. As she has no complaints and the police have no concerns about her going to custodial, we will allow her to go to custodial. Recommend that she be monitored for signs of alcohol and drug withdrawal. They are welcome to return at any time should she develop any medical complaints or wish to be evaluated. If there is a mental health concern, they can contact the DCR while she is incarcerated. Patient states that she is not suicidal or homicidal. This document was made in part using voice recognition software. While efforts are made to proofread this document, sound alike and grammatical errors may occur. Departure - Departure Disposition: 01 Home, Self Care Clinical Impression: Encounter for medical screening examination Condition: Good Instructions: ED Screening Exam Medical Nonurgent Follow-Up: WON FENG ARNP [Physician No Access] - Tomorrow Comments: Patient has refused any blood work, urine testing or any further evaluation. Patient has no complaints at this time. Recommends she be evaluated by the DCR if there is a mental health concern and recommend monitoring for drug and alcohol withdrawal. She is free to return the emergency department for any health-related concerns or worsening. Forms: PCP List Discharge Date/Time: 01/30/23 16:35
--- OUTSIDE RECORDS SUMMARY | 2023-01-30 16:48 | EXTERNAL MEDICAL SUMMARY RPT | Continuity of Care Document ---
Author Name Unknown Address [address] [place] [address] Phone Organization [facility] Address [address] [place] [address] Phone Care Team Providers Care Flute Grinder Name Role Phone System Maintenance Unavailable Unavailable Medications date description facility 2022-12-06 00:00 [facility] 2022-12-06 00:00 [facility] 2022-12-06 00:00 [facility] 2022-12-06 00:00 [facility]
== END 2023-01-30 16:35 | disposition home or self-care (01) ==
LOC: EDUNIT# → ED 16:12
DX: Z02.89 Encounter for other administrative examinations (principal); E03.9 Hypothyroidism, unspecified; Z79.899 Other long term (current) drug therapy
CPT/HCPCS: 99282; 99283